=== PATIENT | male | born 1995 | race Caucasian/White ===

== ENCOUNTER 2017-07-04 17:53 | Emergency (ER) | payer BC, OTHER ==
[~2017-07-04] VITALS: Ht 177.8 cm; Wt 79.1 kg
[2017-07-04 18:06] VITALS: TEMP 36.7; Ht 177.8 cm; Wt 79.1 kg
--- NOTE | 2017-07-04 18:35 | DIAGNOSTIC IMAGING REPORT ---
RIGHT ANKLE MIN 3 VIEWS ROUTINE CLINICAL HISTORY: right ankle pain - stepped wrong and rolled ankle Right trauma COMPARISON: None. DISCUSSION: Nondisplaced oblique fracture distal fibula. Ankle mortise is aligned anatomically. Subtalar joint is intact. Lateral periumbilical soft tissue edema IMPRESSION: Oblique fracture distal fibula. Soft tissue edema. The above report was generated using voice recognition software. It may contain grammatical, syntax or spelling errors. Electronically signed by: Wilian Stone M.D. 07/04/2017 6:34 PM Dictated Date/Time: 07/04/2017 6:33 PM
[2017-07-04] MEDS ORDERED: LEVO-371 PO (19:01)
[2017-07-04] MEDS ORDERED: BUSP5TAB59 PO (19:01)
[2017-07-04] MEDS ORDERED: DULO60CA44 PO (19:01)
[2017-07-04] MEDS ORDERED: KETOROLAC TROMETHAMINE 60 MG/2 ML VIAL IM STA (19:12)
[2017-07-04] MEDS ORDERED: MoRPHine SULFATE 10 MG/ML CARP/VIAL IM STA (19:12)
[2017-07-04] MEDS ORDERED: ONDANSETRON 4MG OD TAB PO ONE (19:15)
[2017-07-04] MEDS ORDERED: OXYCODONE IR HOME PACK PO ONE (19:15)
[2017-07-04] MEDS ORDERED: OXYC1TAB3 PO (19:16)
[2017-07-04 20:10] VITALS: BP 195/134; PULSE 114; O2SAT 95
--- NOTE | 2017-07-05 00:59 | EMERGENCY ROOM VISIT NOTE ---
History First contact with patient: 18:20 Chief Complaint: ANKLE PAIN Stated Complaint: ANKLE PAIN History of Present Illness The patient is a 21 year old male who presents to the Emergency Room with complaints of significant right ankle pain after he stepped off of a curb yesterday around 4 PM, and twisted his ankle. The patient has had persistent pain and swelling since that time. He denies any pain extending into the leg or foot. He denies any pain or seizures or numbness of the right foot or toes, and rates his discomfort a 9 out of 10. Review of Systems 10 system review was performed and was negative except for pertinent positives and negatives as indicated in history of present illness Past Medical/Surgical History Medical Problems: (1) Asthma (2) Hypertension (3) Tobacco Use Disorder Surgical Problems: (1) History of appendectomy Family History FH: cancer FH: gallbladder disease FH: hypertension FH: kidney disease FH: lung disease Social History Smoking Status: Current Every Day Smoker Alcohol Use: occasionally Marital Status: single Occupation Status: [employer] Current/Historical Medications Scheduled Buspirone Hcl (Buspirone Hcl), 5 MG PO BID Duloxetine Hcl (Cymbalta), 60 MG PO DAILY Levocetirizine Dihydrochloride (Xyzal), 5 MG PO DAILY Scheduled PRN Oxycodone Ir (Roxicodone Ir), 1-2 TAB PO Q4H PRN for Pain Physical Exam Vital Signs Date Time Temp Pulse Resp B/P (MAP) Pulse Ox O2 Delivery O2 Flow Rate FiO2 07/04/17 20:10 114 18 195/134 95 07/04/17 19:47 115 20 175/125 97 Room Air 07/04/17 18:06 36.7 112 20 171/113 97 Room Air Physical Exam CONSTITUTIONAL: Healthy and well nourished. Alert and oriented X 3 with positive affect. Patient appears in moderate discomfort from pain. HEENT: Normocephalic, atraumatic. Pupils equal, round and reactive. NECK: Full active range of motion without discomfort. MUSCULOSKELETAL: Examination of the right ankle shows diffuse edema without any open wounds. The patient is tender through the lateral aspect of the ankle. Negative anterior draw. No focal tenderness to the dorsal midfoot, metatarsals , phalanges, calcaneus, Achilles tendon or proximal leg. Pedal pulses are intact. INTEGUMENTARY: No rash or other significant dermatologic conditions noted. NEUROLOGIC: Right foot and toes are sensory intact. Medical Decision & Procedures ER Provider Diagnostic Interpretation: My interpretation of right ankle x-rays confirms an oblique fracture of the distal fibula. There is no ankle mortise asymmetry or widened medial mortise. Radiologist report is as follows: RIGHT ANKLE MIN 3 VIEWS ROUTINE CLINICAL HISTORY: right ankle pain - stepped wrong and rolled ankle Right trauma COMPARISON: None. DISCUSSION: Nondisplaced oblique fracture distal fibula. Ankle mortise is aligned anatomically. Subtalar joint is intact. Lateral periumbilical soft tissue edema IMPRESSION: Oblique fracture distal fibula. Soft tissue edema. Medications Administered Medications (Trade) Dose Ordered Sig/Jacky Route Start Time Stop Time Status Last Admin Dose Admin Morphine Sulfate (MoRPHine SULFATE INJ) 10 mg NOW STAT IM 07/04/17 19:12 07/04/17 19:14 DC 07/04/17 19:38 10 MG Ketorolac Tromethamine (Toradol Inj) 60 mg NOW STAT IM 07/04/17 19:12 07/04/17 19:14 DC 07/04/17 19:38 60 MG Ondansetron HCl (Zofran Odt) 4 mg ONE ONCE PO 07/04/17 19:15 07/04/17 19:16 DC 07/04/17 19:36 4 MG Oxycodone HCl (Roxicodone Immediate Rel 5MG Home Pack) 1 homepack UD ONCE PO 07/04/17 19:15 07/04/17 19:16 DC 07/04/17 20:09 1 HOMEPACK ED Course Patient history and physical exam were performed. Nurse's notes were reviewed. Vital signs were reviewed and were normal. The patient had gone to x-ray prior to my exam. X-rays of the right ankle confirms an oblique nondisplaced distal fibular fracture. Prior to splint application, the patient was administered IM morphine and Toradol, along with Zofran ODT to prevent nausea. A posterior short leg Ortho-Glass splint was applied, and crutches were dispensed. Neurovascular check after splint placement was normal. The patient was provided contact information for [facility] for further follow- up and management. The patient was provided a home pack and prescription for OxyIR as needed for pain. He was encouraged to alternate ibuprofen and Tylenol for baseline pain relief, and intermittently apply ice/elevate the ankle for additional relief. The patient was happy with plan of care, voiced understanding of all discharge instructions, and rated his pain a 4 out of 10 at the conclusion of my exam. The patient's blood pressure was elevated while in the emergency department. The patient was encouraged to follow-up with his PCP or blood pressure recheck, and to discuss possible further treatment. It is also possible that his blood pressure is elevated because of his fracture and pain response. Medical Decision Medication Reconcilliation Current Medication List: was personally reviewed by me Blood Pressure Screening Patient's blood pressure: Elevated blood pressure Blood pressure disposition: Referred to PCP Impression Primary Impression: Fracture of distal end of right fibula Additional Impression: Hypertension Departure Information Prescriptions Oxycodone Ir (Roxicodone Ir) 5 Mg Tab 1-2 TAB PO Q4H Y for Pain, #15 TAB For Initial Treatment Prov: Levar Jean Baptiste PA 07/04/17 Referrals No Doctor, Assigned (PCP) Patient Instructions My [facility] Problem Qualifiers Primary Impression: Fracture of distal end of right fibula Encounter type: initial encounter Fracture type: closed Fracture morphology : other fracture Qualified Codes: S82.831A - Other fracture of upper and lower end of right fibula, initial encounter for closed fracture
== END 2017-07-04 20:20 | disposition home or self-care (01) ==
LOC: C.EDB 17:54 → C.EDD 20:20
DX: S82.454A Nondisplaced comminuted fracture of shaft of right fibula, initial encounter for closed fracture (principal); X58.XXXA Exposure to other specified factors, initial encounter; I10 Essential (primary) hypertension; J45.909 Unspecified asthma, uncomplicated; F17.200 Nicotine dependence, unspecified, uncomplicated; Z79.899 Other long term (current) drug therapy; Z98.890 Other specified postprocedural states; Z80.9 Family history of malignant neoplasm, unspecified; Z83.79 Family history of other diseases of the digestive system; Z82.49 Family history of ischemic heart disease and other diseases of the circulatory system; Z84.1 Family history of disorders of kidney and ureter